=== PATIENT | female | born 1965 | race Caucasian/White ===

== ENCOUNTER 2021-08-20 16:03 | Emergency (ER) | payer MEDICARE, SELFPAY ==
[2021-08-20] MEDS ORDERED: Lidocaine 1% (PF) 30 ML VIAL ONE (16:29)
[2021-08-20] MEDS ORDERED: Boostrix 0.5 ML (Tdap) VIAL ONE (16:29)
[2021-08-20] MEDS ORDERED: Bacitracin 1 PK ONE (16:58)
== END 2021-08-20 17:05 | disposition home or self-care (01) ==
LOC: MADERS 16:03 → EDSEX 16:03 → MADERS 17:05
DX: S61.211A Laceration without foreign body of left index finger without damage to nail, initial encounter (principal); I10 Essential (primary) hypertension; E78.5 Hyperlipidemia, unspecified; E78.00 Pure hypercholesterolemia, unspecified; M19.90 Unspecified osteoarthritis, unspecified site; W26.8XXA Contact with other sharp object(s), not elsewhere classified, initial encounter; Z23 Encounter for immunization; Z79.899 Other long term (current) drug therapy
CPT/HCPCS: 12001; 90471; 90715; J2001

== ENCOUNTER 2025-03-11 10:13 | Emergency (ER) | payer OTHER ==
[2025-03-11 11:08] LABS: #Basophils 0.1 thou/uL (0.0-0.2); #Eosinophils 0.0 thou/uL (0.0-0.7); #Lymphocytes 1.0 thou/uL (1.20-3.40); #Monocytes 0.5 thou/uL (0.11-0.59); #Neutrophils 11.6 thou/uL (1.40-6.50); %Basophils 0.6 % (0.0-1.0); %Eosinophils 0.0 % (0.0-10.0); %Lymphocytes 7.7 % (21.0-51.0); %Monocytes 3.5 % (0.0-10.0); %Neutrophils 88.2 % (42.0-75.0); Hematocrit 43.6 % (36.0-47.0); Hemoglobin 14.2 g/dL (12.0-16.0); Mean Corpuscular Hemoglobin 28.7 pg (27.0-31.0); Mean Corpuscular Volume 88.1 fl (78.0-98.0); Platelet Count 213 10x3/uL (130-400); Red Blood Cell (RBC) Count 4.95 mill/uL (4.20-5.40); White Blood Cell (WBC) Count 13.2 10x3/uL (4.8-10.8)
[2025-03-11 11:14] LABS: INR-International Normal Ratio 1.0; Prothrombin Time 13.4 sec (12.0-14.7)
[2025-03-11 11:15] LABS: PTT 30.8 sec (22.9-36.1)
[2025-03-11] MEDS ORDERED: Magnesium Oxide 400 MG TAB ONE (11:17)
[2025-03-11] MEDS ORDERED: Azithromycin 250 MG TAB ONE (11:17)
[2025-03-11] MEDS ORDERED: cefTRIAXone (ROCEPHIN) 1 GM VIAL ONE (11:18)
[2025-03-11] MEDS ORDERED: Acetaminophen 500 MG TAB ONE (11:18)
[2025-03-11] MEDS ORDERED: predniSONE 20 MG TAB ONE (11:20)
[2025-03-11 11:21] LABS: ALT (SGPT) 35 U/L (Less than 34); AST (SGOT) 24 U/L (11-34); Albumin 4.5 g/dL (3.1-4.5); Alkaline Phosphatase 79 U/L (40-110); Anion Gap 16 mmol/L (10-20); BUN (Urea Nitrogen) 11 mg/dL (9.8-20.1); Bilirubin, Total 0.4 mg/dL (0.3-1.2); Calc. Creatinine Clearance 0 mL/min (70-130); Calcium 9.4 mg/dL (7.8-10.44); Carbon Dioxide 23 mmol/L (22-29); Chloride 105 mmol/L (98-107); Globulin 2.4 g/dL (2.4-3.5); Glucose 140 mg/dL (70-105); Lipase 15 U/L (8-78); Potassium 3.8 mmol/L (3.5-5.1); Sodium 140 mmol/L (136-145)
[2025-03-11 11:48] LABS: Glucose, Urine (Dipstick) Negative (Negative); Leukocyte Negative (Negative); Protein, Urine (Dipstick) Negative (Neg-Trace); Specific Gravity, Urine 1.015 (1.005-1.030)
[2025-03-11 11:54] LABS: Bacteria/HPF Rare-Few HPF (None Seen); CAUTI Indications for Culture Pelvic or flank pain; Mucous/LPF Few LPF (<2+); RBC/HPF None Seen HPF (0-3); Urine Culture Reflex No No; WBC/HPF None Seen HPF (0-3)
[2025-03-11] MEDS ORDERED: Ondansetron PF 4 MG/2 ML Vial ONE (12:27)
== END 2025-03-11 15:24 | disposition short-term general hospital (02) ==
LOC: MADERS 10:13
DX: K52.9 Noninfective gastroenteritis and colitis, unspecified (principal); K92.1 Melena; E78.00 Pure hypercholesterolemia, unspecified; I10 Essential (primary) hypertension; Z79.899 Other long term (current) drug therapy
CPT/HCPCS: 74176; 80053; 81001; 83605; 83690; 85025; 85610; 85730; 86850; 86900; 86901; J0696; J2270; J2405; J2543; J7030; 96365; 96375; J7512